=== PATIENT | male | born 1995 | race Two or more races ===

== ENCOUNTER 2024-12-18 22:26 | Emergency (ER) | payer OTHER ==
[~2024-12-18] VITALS: Ht 180.3 cm; Wt 111.9 kg
[2024-12-18] MEDS ORDERED: IBUP-1455 PO (23:29)
[2024-12-18] MEDS ORDERED: CEPH250C PO (23:29)
--- NOTE | 2024-12-18 23:29 | ED.PDOC ---
History of Present Illness(SKN HPI Comments This patient is a obese 29-year-old male who arrives the ED today for evaluation of a abscess to the perianal region in his groin. Patient states the symptoms began a few days ago and has worsened. Patient complains of pain. No discharge noted from the site. Vital signs were stable. Chief Complaint: Abscess Time Seen by MD: 22:31 History of Present Illness: Nurses Notes Allergies: Coded Allergies: NO KNOWN ALLERGIES (Unverified , 12/18/24) Information Source: Patient Mode of Arrival: Ambulatory Severity: Moderate Timing: Days Duration: Since onset Prehospital treatment: None Location: Perineum Mechanism: Spontaneous Onset Occurence: Indoors Object: Unknown Tetanus: UTD Associated Signs and Symptoms: Redness, Swelling Past Medical History PAST MEDICAL HISTORY: Denies Surgical History: Denies all surgeries Family History Family History: Reviewed,noncontributory to illness, No family hx of Cancer, No family hx of DM, No family hx of Heart erika, No family hx of HTN, No family hx ofKidney erika, No family hx of Liver erika, No family hx of Lung erika, No family hx of Stroke Social History Smoker: Non-Smoker Alcohol: Denies ETOH Use Drugs: Denies Drug Use Lives In: Home Constitutional: denies: chills, diaphoresis, fatigue, fever, malaise, sweats, weakness, others EENTM: denies: blurred vision, double vision, ear bleeding, ear discharge, ear drainage, ear pain, ear ringing, eye pain, eye redness, hearing loss, mouth pain, mouth swelling, nasal discharge, nose bleeding, nose congestion, nose pain, photophobia, tearing, throat pain, throat swelling, voice changes, others Respiratory: denies: cough, hemoptysis, orthopnea, SOB at rest, shortness of breath, SOB with excertion, stridor, wheezing, others Cardiovascular: denies: chest pain, dizzy spells, diaphoresis, Dyspnea on exertion, edema, irregular heart beat, left arm pain, lightheadedness, palpitations, PND, syncope, others Gastrointestinal: denies: abdomen distended, abdominal pain, blood streaked bowels, constipated, diarrhea, dysphagia, difficulty swallowing, hematemesis, melena, nausea, poor appetite, poor fluid intake, rectal bleeding, rectal pain, vomiting, others Genitourinary: denies: burning, dysuria, flank pain, frequency, hematuria, incontinence, penile discharge, penile sore, pain, testicle pain, testicle swelling, urgency, others Neurological: denies: dizziness, fainting, headache, left sided numbness, left sided weakness, numbness, paresthesia, pre-existing deficit, right sided numbness, right sided weakness, seizure, speech problems, tingling, tremors, weakness, others Musculoskeletal: denies: back pain, gout, joint pain, joint swelling, muscle pain, muscle stiffness, neck pain, others Integumetry: reports: wounds (Perineum abscess); denies: bruises, change in color, change in hair/nails, dryness, laceration, lesions, lumps, rash, others Allergic/Immunocompromised: denies: Difficulty Healing, Frequent Infections, Hives, Itching, others Hematologic/Lymphatic: denies: anemia, blood clots, easy bleeding, easy bruising, swollen glands, others Endocrine: denies: excessive hunger, excessive sweating, excessive thirst, excessive urination, flushing, intolerance to cold, intolerance to heat, unexplained weight gain, unexplained weight loss, others Psychiatric: denies: anxiety, bipolar disorder, depression, hopeless, panic disorder, schizophrenia, sleepless, suicidal, others Physical Exam General Appearance: Mild Distress (Due to abscess pain concerns), Obese HEENT: Normal ENT Inspection, Pharynx Normal, TMs Normal Neck: Full Range of Motion, Non-Tender, Normal, Normal Inspection Respiratory: Chest Non-Tender, Lungs Clear, No Accessory Muscle Use, No Respiratory Distress, Normal Breath Sounds Cardiovascular: No Edema, No JVD, No Murmur, No Gallop, Normal Peripheral Pulses, Regular Rate/Rhythm Breast Exam: Deferred Gastrointestinal: No Organomegaly, Non Tender, No Pulsatile Mass, Normal Bowel Sounds, Soft Genitalia: Deferred Pelvic: Deferred Rectal: Deferred Extremities: Normal inspection Neurologic: Alert Cerebellar Function: NOT DONE Reflexes: NOT DONE Skin: Other (Patient has a nickel sized noncompliant abscess to the perineum region. Localized erythema. Area does have a point that will eventually be the source of drainage. Tender to palpation throughout.) Lymphatic: No Adenopathy Was a procedure done? Was a procedure done?: No Differential Diagnosis (INTG) Differential Diagnosis: Other (Abscess, folliculitis) X-Ray, Labs, Meds, VS Vital Signs Date Time Temp Pulse Resp B/P (MAP) Pulse Ox O2 Delivery O2 Flow Rate FiO2 12/18/24 22:28 98.7 97 18 141/70 96 98.7 X-Ray, Labs, Meds, VS Comment Spent time discussing the concerns with the patient. Advised warm soaks or compresses in the region to aid and drainage. Compress should be no hotter that the patient would shower in. Oral antibiotics as directed until completion. Pain medication as needed. Time of 1ST Reevaluation: 23:27 Reevaluation 1ST: Unchanged Consultation: PCP Patient Education/Counseling: Diagnosis, Treatment Family Education/Counseling: Diagnosis, Treatment SEPSIS Sepsis Screen Date sepsis recognized/suspect: Dec 18, 2024 Time Sepsis recognized/suspect: 2230 Recent Procedure: No On Antibiotic Therapy: No Respiratory Rate >20: No Heart Rate >90: No Temp<36 C (96.8 F) or >38.3 C: No SBP <90 or MAP <65 mmHG: No New Acute Mental Status Change: No Is the patient on CPAP, BIPAP,: No Vital Signs Date Time Temp Pulse Resp B/P (MAP) Pulse Ox O2 Delivery O2 Flow Rate FiO2 12/18/24 22:28 98.7 97 18 141/70 96 98.7 Departure 1 Departure Time of Disposition: 23:28 Impression: Primary Impression: Abscess Disposition: HOME / SELF CARE / HOMELESS Condition: Stable Additional Instructions: Advise utilizing antibiotics as directed until completion. Patient should utilize warm compresses no hotter than he would shower in. Pain medication as needed. e-Prescriptions Ibuprofen Micronized (Ibuprofen) 800 Mg Tab 800 MG PO Q8HP PRN, #30 TAB Prov: MARE WILHELM PAC 12/18/24 Cephalexin (KEFLEX CAPSULE) 250 Mg Cp 1 CAP PO QID for 7 Days, #28 CAP Prov: MARE WILHELM PAC 12/18/24 Discharged With: Self, Spouse Critical Care Note Critical Care Time?: No Stability Stability form required: No Heart Score Heart Score: Heart Score Response (Comments) Value History N/A 0 EKG N/A 0 Age N/A 0 Risk Factors N/A 0 Troponin N/A 0 Total 0 MARE WILHELM PAC Dec 18, 2024 23:29
[2024-12-18] MEDS ORDERED: HYDROcodone-ACET 5/325MG TAB PO ONE (23:30)
[2024-12-18] MEDS: CEPHALEXIN 250 MG CAP PO ONE (23:48)
[2024-12-18] MEDS: IBUPROFEN 800 MG TAB PO ONE (23:48)
[2024-12-18 23:50] VITALS: BP 124/86; PULSE 87; RESP 19; TEMP 98.4; O2SAT 95
== END 2024-12-18 23:56 | disposition home or self-care (01) ==
LOC: ER 22:26
DX: L02.214 Cutaneous abscess of groin (principal); E66.9 Obesity, unspecified; Z68.34 Body mass index [BMI] 34.0-34.9, adult